=== PATIENT | male | born 1995 | race Caucasian/White ===

== ENCOUNTER 2017-12-04 23:26 | Emergency (ER) | payer BC, OTHER ==
[2017-12-04] MEDS ORDERED: Bacitracin/Neomycin/Polymyxin B Oint 0.9 GM U/D Packet TOP STA (23:42)
--- NOTE | 2017-12-04 23:45 | EDM.PDOC ---
ED HPI GENERAL MEDICAL PROBLEM - General Stated Complaint: LACERATION RT SIDE HEAR Time Seen by Provider: 12/04/17 23:36 Source of Information: Reports: Patient, Family History Limitations: Reports: No Limitations - History of Present Illness INITIAL COMMENTS - FREE TEXT/NARRATIVE: 22 y.o.w.m came to the ed shortly after he bumped his head on a tool mat work. No LOC, no H/A no N/V/D. Pt noticed a minor bleed at his left madeleine, which stopped [employer], no other acute medical issues. last TD immunization 6 months ago. 114/64 pulse 65 temp 36.8 pulse ox 98% on RA RR 18. Onset Date: 12/04/17 Onset Time: 23:00 Duration: Minutes:, Improving Location: Reports: Head Quality: Reports: Dull Severity: Mild Improves with: Reports: Rest Worsens with: Reports: Other Context: Reports: Trauma (pt hit his head at work on a tool. No LOC.) Associated Symptoms: Reports: No Other Symptoms, Other (no H/A) - Related Data Allergies Allergy/AdvReac Type Severity Reaction Status Date / Time venom-honey bee Allergy Severe Difficulty Verified 07/23/16 23:43 [bee venom (honey bee)] Breathing Penicillins Allergy Swelling Verified 05/10/15 23:34 Home Meds: Home Meds NK [No Known Home Meds] 05/10/15 [History] Past Medical History - Past Health History Medical/Surgical History: Denies Medical/Surgical History - Past Surgical History HEENT Surgical History: Reports: Other (See Below) Social & Family History - Tobacco Use Smoking Status *Q: Light Tobacco Smoker Years of Tobacco use: 5 Packs/Tins Daily: 0.2 Second Hand Smoke Exposure: Yes - Recreational Drug Use Recreational Drug Use: No ED ROS GENERAL - Review of Systems Review Of Systems: See Below Constitutional: Reports: No Symptoms HEENT: Reports: No Symptoms Respiratory: Reports: No Symptoms Cardiovascular: Reports: No Symptoms Endocrine: Reports: No Symptoms GI/Abdominal: Reports: No Symptoms : Reports: No Symptoms Musculoskeletal: Reports: No Symptoms Skin: Reports: Lesions (minor left madeleine) Neurological: Reports: No Symptoms Psychiatric: Reports: No Symptoms Hematologic/Lymphatic: Reports: No Symptoms Immunologic: Reports: No Symptoms ED EXAM, HEAD INJURY - Physical Exam Exam: See Below Exam Limited By: No Limitations General Appearance: Alert, WD/WN, No Apparent Distress Head: Normocephalic, Scalp Abrasions (minor left madeleine.) Eyes: Bilateral Eye: EOMI, Normal Inspection Ears: Normal External Exam, Normal Canal Nose: Normal Inspection, Normal Mucousa, No Blood Throat/Mouth: Normal Inspection, Normal Lips, Normal Teeth Neck: Non-Tender, Full Range of Motion, Normal Alignment, Normal Inspection Respiratory: No Respiratory Distress, Lungs Clear, Normal Breath Sounds Cardiovascular: Normal Peripheral Pulses, Regular Rate, Rhythm, No Edema, No Gallop GI/Abdominal Exam: Normal Bowel Sounds, Soft, Non-Tender, No Organomegaly (Male) Exam: Deferred Rectal (Males) Exam: Normal Exam, Deferred Back Exam: Normal Inspection, Full Range of Motion Extremities: Normal Inspection, Normal Range of Motion, Non-Tender Neurologic: terminal carman II-XII nml As Tested, No Motor/Sensory Deficits, Alert, Normal Mood/Affect, Oriented x 3 Skin: Normal Color, Other (minor abrasion left madeleine 0.5 cm) - Jayda Coma Score Best Eye Response ([place]): (4) Open Spontaneously Best Verbal Response ([place]): (5) Oriented Best Motor Response (Jayda): (6) Obeys Commands [place] Total: 15 Course - Vital Signs Text/Narrative:: 22 y.o.w.m came to the ed shortly after he bumped his head on a tool mat work. No LOC, no H/A no N/V/D. Pt noticed a minor bleed at his left madeleine, which stopped [employer], no other acute medical issues. last TD immunization 6 months ago. 114/64 pulse 65 temp 36.8 pulse ox 98% on RA RR 18. PE: Minor abrasion left madeleine 0.5 cm, no bleed Impression: Minor abrasion left madeleine Tx: Neosporine ointment to wound. Reexam: Improved. Urine was collected for workmans comp for drug screen Plan: D/C with instructions Last Recorded V/S: Last Vital Signs Temp 37.0 C 12/04/17 23:54 Pulse 91 12/04/17 23:54 Resp 17 12/04/17 23:54 BP 114/62 12/04/17 23:54 Pulse Ox 95 12/04/17 23:54 - Orders/Labs/Meds Meds: Medications Discontinued Medications Generic Name Dose Route Start Last Admin Trade Name Yenifer PRN Reason Stop Dose Admin Neomycin/Polymyxin/Bacitracin 1 each 12/04/17 23:42 Triple Antibiotic Oint TOP 12/04/17 23:43 ONETIME STA Departure - Departure Time of Disposition: 23:54 Disposition: Home, Self-Care 01 Condition: Good Clinical Impression: Abrasion - Discharge Information Instructions: Laceration Care, Adult Referrals: PCP,None [Primary Care Provider] - Additional Instructions: Please f/u with your PMD. Please apply neosporine ointment to wound twice daily for 5 days, please come back to the ed if your symptoms get worse acutely
[2017-12-04 23:55] VITALS: BP 114/62
== END 2017-12-04 23:55 | disposition home or self-care (01) ==
LOC: FB.ED 23:26
DX: S00.01XA Abrasion of scalp, initial encounter (principal); Z91.030 Bee allergy status; Z88.0 Allergy status to penicillin; F17.210 Nicotine dependence, cigarettes, uncomplicated; W22.8XXA Striking against or struck by other objects, initial encounter
CPT/HCPCS: 99000; 99282

== ENCOUNTER 2020-06-10 01:02 | Emergency (ER) | payer OTHER ==
--- NOTE | 2020-06-10 01:44 | EDM.PDOC ---
ED HPI GENERAL MEDICAL PROBLEM - General Chief Complaint: Laceration Stated Complaint: FINGER LAC Time Seen by Provider: 06/10/20 01:41 Source of Information: Reports: Patient History Limitations: Reports: No Limitations - History of Present Illness INITIAL COMMENTS - FREE TEXT/NARRATIVE: Sustained a cut by a blade at work,on the left ring finger nail.No bleeding or pain - Related Data Allergies Allergy/AdvReac Type Severity Reaction Status Date / Time venom-honey bee Allergy Severe Difficulty Verified 07/23/16 23:43 [bee venom (honey bee)] Breathing Penicillins Allergy Swelling Verified 05/10/15 23:34 Home Meds: Home Meds NK [No Known Home Meds] 05/10/15 [History] Past Medical History - Past Health History Medical/Surgical History: Denies Medical/Surgical History - Past Surgical History HEENT Surgical History: Reports: Other (See Below) Social & Family History - Tobacco Use Smoking Status *Q: Current Every Day Smoker Years of Tobacco use: 2 Packs/Tins Daily: 1 ED ROS GENERAL - Review of Systems Review Of Systems: Comprehensive ROS is negative, except as noted in HPI. ED EXAM, SKIN/RASH Exam: See Below Text/Narrative:: Wedge laceration of the ring finger nail. Course - Vital Signs Last Recorded V/S: Last Vital Signs Temp 98.4 F 06/10/20 01:40 Pulse 79 06/10/20 01:40 Resp 16 06/10/20 01:40 BP 139/65 06/10/20 01:40 Pulse Ox 99 06/10/20 01:40 - Orders/Labs/Meds Meds: Medications Discontinued Medications Generic Name Dose Route Start Last Admin Trade Name Freq PRN Reason Stop Dose Admin Diphtheria/Tetanus/Acell Pertussis 0.5 ml 06/10/20 01:27 06/10/20 01:50 Adacel IM 06/10/20 01:28 Not Given .ONCE ONE Departure - Departure Time of Disposition: 01:42 Disposition: Home, Self-Care 01 Condition: Good Clinical Impression: Laceration of finger nail bed Qualifiers: Encounter type: initial encounter Qualified Code(s): S61.319A - Laceration without foreign body of unspecified finger with damage to nail, initial encounter - Discharge Information Instructions: Laceration Care, Adult Referrals: PCP,None [Primary Care Provider] - Forms: ED Department Discharge Additional Instructions: Keep area clean and dry. May take Tylenol 1000mg by mouth every 8 hours as needed. Follow-up with primary care physician in one week. Sepsis Event Note (ED) - Evaluation Sepsis Screening Result: No Definite Risk - Problem List & Annotations (1) Laceration of finger nail bed SNOMED Code(s): 569019425 Code(s): S61.319A - LACERATION W/O FB OF UNSP FINGER W DAMAGE TO NAIL, INIT Status: Acute Qualifiers: Encounter type: initial encounter Qualified Code(s): S61.319A - Laceration without foreign body of unspecified finger with damage to nail, initial encounter - Problem List Review Problem List Initiated/Reviewed/Updated: Yes - Assessment/Plan Plan: I used a nail clipper to trim th edge of the nail. No active bleeding needed. Tdap offered,but declined. Band Aid dressing and Follow up in 1 week.
[2020-06-10 01:50] VITALS: BP 139/65; PULSE 79
[2020-06-10] MEDS: Diphtheria,Pertussis(Acell),Tetanus Vaccine 0.5 ML SDV IM ONE (01:50)
== END 2020-06-10 01:47 | disposition home or self-care (01) ==
LOC: FB.ED 01:02
DX: S61.315A Laceration without foreign body of left ring finger with damage to nail, initial encounter (principal); Z91.030 Bee allergy status; Z88.0 Allergy status to penicillin; F17.210 Nicotine dependence, cigarettes, uncomplicated; W27.8XXA Contact with other nonpowered hand tool, initial encounter; Y99.0 Civilian activity done for income or pay
CPT/HCPCS: 99000; 99282

== ENCOUNTER 2022-06-26 18:29 | Emergency (ER) | payer BC ==
[2022-06-26] MEDS ORDERED: Sodium Chloride 0.9% 1,000 ML IV ONE (18:36)
[2022-06-26 19:03] LABS: ESTIMATED GFR 65 mL/min (>60)
[2022-06-26] MEDS ORDERED: Ondansetron 4 MG/2 ML SDV IVPUSH ONE (19:24)
[2022-06-26] MEDS ORDERED: Sodium Chloride 0.9% 10 ML Syringe FLUSH PRN (19:35)
[2022-06-26] MEDS ORDERED: cefTRIAXone 1 GM Vial IVPUSH STA (19:57)
[2022-06-26] MEDS ORDERED: Iopamidol 755 MG/ML 150 ML Bottle IV ONE (20:12)
[2022-06-26] MEDS ORDERED: Lactated Ringers 1,000 ML IV ONE (20:43)
[2022-06-27 00:51] VITALS: BP 144/81; PULSE 73
== END 2022-06-26 22:50 | disposition home or self-care (01) ==
LOC: FB.ED 18:29
DX: R10.33 Periumbilical pain (principal); R61 Generalized hyperhidrosis; Z91.030 Bee allergy status
CPT/HCPCS: 36415; 74019; 74177; 80053; 80307; 81001; 83605; 83690; 84484; 85025; 86140; 87040; 93005; 96361; 96374; 96375; 99284; J0696; J2405; J3490; J7030; J7120; Q9967; 93010; 99282